=== PATIENT | female | born 1985 | race American Indian/Alaskan Native ===

== ENCOUNTER 2016-11-25 20:31 | Emergency (ER) | payer SELFPAY ==
[2016-11-25 21:14] LABS: Basophils % (Auto) 0.5 % (0.0-1.8); Eosinophils % (Auto) 1.7 % (0.0-4.3); Hematocrit 37.2 % (30.3-42.9); Hemoglobin 12.2 gm/dl (10.1-14.3); Mean Corpuscular HGB Conc 33 % (30-34); Mean Corpuscular Hemoglobin 31 pg (28-32); Mean Corpuscular Volume 96 fl (79-97); Platelet Count 179 K/mm3 (140-440); Red Blood Count 3.89 M/mm3 (3.65-5.03); Red Cell Distribution Width 12.1 % (13.2-15.2); White Blood Count 7.6 K/mm3 (4.5-11.0)
[2016-11-25 21:35] LABS: Blood Urea Nitrogen 7 mg/dL (7-17); Calcium 8.7 mg/dL (8.4-10.2); Carbon Dioxide 20 mmol/L (22-30); Glucose 78 mg/dL (65-100)
[2016-11-25 21:36] LABS: Anion Gap 20 mmol/L; Chloride 98.9 mmol/L (98-107); Sodium 135 mmol/L (137-145)
--- NOTE | 2016-11-25 21:54 | Ultrasound Report ---
FINAL REPORT PROCEDURE: Obstetrical ultrasound. TECHNIQUE: Real-time transabdominal sonography of the uterus, placenta, amniotic fluid, adnexa, and fetus was performed with image documentation. Measurements were obtained to determine age/size. M-mode Doppler was used to document heartbeat. CPT 94431 HISTORY: Vaginal bleeding with . COMPARISON: No prior studies are available for comparison. FINDINGS: The uterus measures 13.7 centimeters x 9.2 centimeters x 11.3 centimeters. There is a single intrauterine fetus in aquatic presentation. Cardiac activity is documented at 161 beats per minute. The crown-rump length measurement is 6.5 centimeters. This indicates a menstrual age of 12 weeks 6 days. The estimated date of confinement is 06/03/2017. The placenta is anterior in location. There are no signs of placental hemorrhage. Both ovaries appear normal in size. IMPRESSION: Single viable intrauterine with a menstrual age of 12 weeks 6 days.
[2016-11-25 22:01] LABS: Bilirubin,Urine NEG (Negative); Blood,Urine NEG (Negative); Ketones,Urine 20 mg/dL (Negative); Leukocyte Esterase,Urine MOD (Negative); Mucus,Urine 1+ /HPF; Nitrite,Urine NEG (Negative); Protein,Urine <15 mg/dL mg/dL (Negative); Urobilinogen,Urine < 2.0 mg/dL (<2.0)
[2016-11-25] MEDS ORDERED: TYLENOL PO ONE (23:45)
[2016-11-25] MEDS ORDERED: ZOFRAN ODT PO ONE (23:45)
--- NOTE | 2016-11-25 23:46 | Emergency Department Report ---
ED General Adult HPI - General Chief complaint: Dyspnea/Respdistress Stated complaint: CP/SOB/PREG/VAG BLEEDING Time Seen by Provider: 11/25/16 23:34 Source: patient, RN notes reviewed Mode of arrival: Ambulatory Limitations: No Limitations - History of Present Illness Initial comments: This is a 31-year-old female. She is previously unknown to me. She is 4, para 3. She does not have any primary care doctor. She does not have a private PRODUCT SUPPORT REPRESENTATIVE doctor. She is known to be today. Last menstrual period was September 04. No aspirin within the past 7 days. No cocaine use. No leg pain. No leg swelling. No history of DVT or pulmonary embolus. Does not take control tablets. The patient presents to ER with multiple complaints. First complaint is left- sided chest wall pain. It is aching. It has been present since 5:00 in the morning. The pain is constant. It does not radiate to the back, arms or neck. There is no diaphoresis. Patient endorses vomiting which has been going on since her . Patient also complains of shortness of breath. The patient says complaint is resolved vaginal bleeding. It was yesterday. It has since resolved. Patient denies irritative and obstructive urinary symptoms. She did complain of flank pain to the nurse, but to me did not complain of it. The chest pain has no exacerbating or relieving factors. Vaginal bleeding is not having exacerbating or relieving factors. It has resolved on its own. -: Gradual Location: chest, genitals Consistency: intermittent Improves with: other (History of present illness) Worsens with: other (History of present illness) Associated Symptoms: chest pain, shortness of breath - Related Data Previous Rx's Medication Instructions Recorded Last Taken Type Doxylamine/Pyridoxine HCl 1 each PO QHS PRN #30 tablet. 11/26/16 Unknown Rx [Shahid Del Toro 10-10 mg Tablet] Vit W-Ca,Fe,FA(<1 mg) 1 each PO QDAY #30 tablet 11/26/16 Unknown Rx [ Vitamins] Allergies Allergy/AdvReac Type Severity Reaction Status Date / Time No Known Allergies Allergy Unverified 11/25/16 20:52 ED Review of Systems ROS: Stated complaint: CP/SOB/PREG/VAG BLEEDING Other details as noted in HPI Constitutional: denies: fever Eyes: denies: vision change ENT: denies: epistaxis Respiratory: denies: cough Cardiovascular: chest pain Gastrointestinal: as per HPI Genitourinary: abnormal menses Musculoskeletal: as per HPI Skin: as per HPI Neurological: as per HPI Psychiatric: as per HPI ED Past Medical Hx - Past Medical History Previous Medical History?: No - Surgical History Additional Surgical History: 2010 fx pelvic bone, - Social History Smoking Status: Never Smoker Substance Use Type: None - Medications Home Medications: Home Medications Medication Instructions Recorded Confirmed Last Taken Type Doxylamine/Pyridoxine HCl 1 each PO QHS PRN #30 tablet. 11/26/16 Unknown Rx [Diclegis Dr 10-10 mg Tablet] Vit W-Ca,Fe,FA(<1 mg) 1 each PO QDAY #30 tablet 11/26/16 Unknown Rx [ Vitamins] ED Physical Exam - General Limitations: No Limitations General appearance: alert, in no apparent distress - Head Head exam: Present: atraumatic, normocephalic - Eye Eye exam: Present: normal appearance, PERRL, EOMI, other (visual acuity intact to finger counting, color perception, reading at a close distance). Absent: nystagmus - ENT ENT exam: Present: normal exam, normal orophraynx, mucous membranes moist, TM's normal bilaterally, normal external ear exam - Neck Neck exam: Present: normal inspection, full ROM. Absent: tenderness, meningismus - Respiratory Respiratory exam: Present: normal lung sounds bilaterally, other (bilateral breast exam is unremarkable. There is no chest wall tenderness. During the breast examination, I am escorted by ER chemical radiation technician Mariela Wilde). Absent: respiratory distress, wheezes, rales, rhonchi, stridor, chest wall tenderness - Cardiovascular Cardiovascular Exam: Present: regular rate, normal rhythm, normal heart sounds. Absent: bradycardia, tachycardia, irregular rhythm, systolic murmur, diastolic murmur, rubs, gallop - GI/Abdominal GI/Abdominal exam: Present: soft, normal bowel sounds. Absent: distended, tenderness, guarding, rebound, rigid, pulsatile mass - External exam: Present: normal external exam Speculum exam: Present: normal speculum exam. Absent: vaginal bleeding Bi-manual exam: Present: normal bi-manual exam, other (escorted by Mariela Wilde). Absent: cervical motion tendernes, adnexal tenderness, adnexal mass, uterine tenderness - Extremities Exam Extremities exam: Present: normal inspection, full ROM, normal capillary refill. Absent: tenderness, pedal edema, joint swelling, calf tenderness - Back Exam Back exam: Present: normal inspection, full ROM. Absent: tenderness, CVA tenderness (R), CVA tenderness (L), muscle spasm, paraspinal tenderness, vertebral tenderness - Neurological Exam Neurological exam: Present: alert, oriented X3, normal gait (there is no pass pointing. Negative pronator drift. Normal [id number]. Negative Romberg examination. Normal tandem gait. Normal gait.), other (Extraocular movements intact. Tongue midline. No facial droop. Facial sensation intact to light touch in the V1, V2, V3 distribution bilaterally. 5 and 5 strength in 4 extremities.. Sensation is intact to light touch in 4 extremities.). Absent: motor sensory deficit - Psychiatric Psychiatric exam: Present: normal affect, normal mood - Skin Skin exam: Present: warm, dry, intact, normal color. Absent: rash ED Course Vital Signs 11/25/16 11/26/16 11/26/16 20:40 00:05 00:30 Temperature 98 F Pulse Rate 78 81 86 Respiratory 18 14 16 Rate Blood Pressure 128/80 113/75 O2 Sat by Pulse 100 100 Oximetry - Reevaluation(s) Reevaluation #1: 11/26/16 01:12 Differential diagnosis: Costochondritis, GERD, reflux, pericarditis, myocarditis , pneumonia, acute coronary syndrome, pulmonary embolus Assessment and plan: 31-year-old female with chest pain for 20 hours. Troponins negative 2. Low risk by well's criteria, low risk by heart score, low risk by NAT score, d-dimer negative. EKG is suggested to be consistent with pericarditis as per the computer interpretation, I feel like the EKG is more consistent with benign early repolarization. The patient's history does not seem to be consistent with classic pericarditis. X-ray of the chest is negative. The risks, benefits, alternatives of x-ray were discussed with the patient verbalizes understanding. She did endorse a history of vaginal bleeding, she is found to be Rh+, and an ultrasound demonstrates an intrauterine with a gestational age of 12 weeks and 6 days. The patient is instructed to follow up with outpatient obstetrics to initiate care. She is tolerating liquid feeds at this time. She will be discharged at this time. Urinalysis is not consistent with UTI. Given lack of fever, lack of tachycardia, I think myocarditis, pericarditis very unlikely. 11/26/16 01:17 ED Medical Decision Making - Lab Data Result diagrams: 11/25/16 20:59 11/25/16 20:59 Vital Signs 11/25/16 11/26/16 11/26/16 20:40 00:05 00:30 Temperature 98 F Pulse Rate 78 81 86 Respiratory 18 14 16 Rate Blood Pressure 128/80 113/75 O2 Sat by Pulse 100 100 Oximetry Labs 11/25/16 11/25/16 11/25/16 20:59 20:59 20:59 WBC RBC Hgb Hct MCV MCH MCHC RDW Plt Count Lymph % (Auto) Grayson % (Auto) Eos % (Auto) Baso % (Auto) Lymph # Grayson # Eos # Baso # Seg Neutrophils % Seg Neutrophils # PT INR D-Dimer Sodium 135 L Potassium 4.0 Chloride 98.9 Carbon Dioxide 20 L Anion Gap 20 BUN 7 Creatinine 0.5 L Estimated GFR > 60 BUN/Creatinine Ratio 14.00 Glucose 78 Calcium 8.7 Troponin T < 0.010 HCG, Quant 90073 H Urine Color Urine Turbidity Urine pH Ur Specific Guin Urine Protein Urine Glucose (UA) Urine Ketones Urine Blood Urine Nitrite Urine Bilirubin Urine Urobilinogen Ur Leukocyte Esterase Urine WBC (Auto) Urine RBC (Auto) U Epithel Cells (Auto) Urine Mucus Blood Type A POSITIVE 11/25/16 11/25/16 11/25/16 20:59 21:19 23:56 WBC 7.6 RBC 3.89 Hgb 12.2 Hct 37.2 MCV 96 MCH 31 MCHC 33 RDW 12.1 L Plt Count 179 Lymph % (Auto) 19.2 Grayson % (Auto) 6.0 Eos % (Auto) 1.7 Baso % (Auto) 0.5 Lymph # 1.5 Grayson # 0.5 Eos # 0.1 Baso # 0.0 Seg Neutrophils % 72.6 H Seg Neutrophils # 5.6 PT 12.8 INR 0.97 D-Dimer 226.88 Sodium Potassium Chloride Carbon Dioxide Anion Gap BUN Creatinine Estimated GFR BUN/Creatinine Ratio Glucose Calcium Troponin T HCG, Quant Urine Color Yellow Urine Turbidity Clear Urine pH 6.0 Ur Specific Guin 1.025 Urine Protein <15 mg/dl Urine Glucose (UA) Neg Urine Ketones 20 Urine Blood Neg Urine Nitrite Neg Urine Bilirubin Neg Urine Urobilinogen < 2.0 Ur Leukocyte Esterase Mod Urine WBC (Auto) 2.0 Urine RBC (Auto) 4.0 U Epithel Cells (Auto) 3.0 Urine Mucus 1+ Blood Type 11/25/16 23:56 WBC RBC Hgb Hct MCV MCH MCHC RDW Plt Count Lymph % (Auto) Grayson % (Auto) Eos % (Auto) Baso % (Auto) Lymph # Grayson # Eos # Baso # Seg Neutrophils % Seg Neutrophils # PT INR D-Dimer Sodium Potassium Chloride Carbon Dioxide Anion Gap BUN Creatinine Estimated GFR BUN/Creatinine Ratio Glucose Calcium Troponin T < 0.010 HCG, Quant Urine Color Urine Turbidity Urine pH Ur Specific Guin Urine Protein Urine Glucose (UA) Urine Ketones Urine Blood Urine Nitrite Urine Bilirubin Urine Urobilinogen Ur Leukocyte Esterase Urine WBC (Auto) Urine RBC (Auto) U Epithel Cells (Auto) Urine Mucus Blood Type - EKG Data -: EKG Interpreted by Me EKG shows normal: sinus rhythm Rate: normal - EKG Data 11/26/16 01:14 EKG #1: Sinus, 73 bpm, normal intervals, normal axis, not consistent with STEMI, possible early pericarditis versus repolarization EKG #2: Normal sinus, 81 bpm, normal intervals, normal axis, not morphologically consistent with STEMI, early repolarization versus pericarditis of possibility - Radiology Data Radiology results: report reviewed, image reviewed interpreted by me: X-ray of the chest is negative for acute disease. Ultrasound demonstrates a viable intrauterine with a menstrual age of 12 weeks and 6 days. Critical care attestation.: If time is entered above; I have spent that time in minutes in the direct care of this critically ill patient, excluding procedure time. ED Disposition Clinical Impression: , Chest pain Disposition: DISCHARGED TO HOME OR SELFCARE Is pt being admited?: No Does the pt Need Aspirin: No Condition: Stable Instructions: Chest Pain (ED), (ED) Additional Instructions: Ultrasound demonstrates that the is almost 13 weeks. Take the vitamins as directed, nausea medications as needed. Follow-up as soon as possible with an outpatient machine candle molder to initiate care. Follow up with any of the listed cardiology specialists within the next week for your chest pain. Take acetaminophen as needed for chest pain. Return to the ER right away with new pain, worsened pain, migration of pain, fevers, chills, intractable nausea or vomiting, inability to tolerate liquid feeds, confusion. Do not initiate sex unless cleared by an PRODUCT SUPPORT REPRESENTATIVE doctor. Abstain from consumption of alcohol, tobacco, marijuana, and avoid contact with individuals that smoke tobacco or marijuana. Prescriptions: Doxylamine/Pyridoxine HCl [Shahid Del Toro 10-10 mg Tablet] 1 each PO QHS PRN #30 tablet.dr [place] Reason: Nausea Vit W-Ca,Fe,FA(<1 mg) [ Vitamins] 1 each PO QDAY #30 tablet Referrals: PRIMARY CARE, [Primary Care Provider] - 3-5 Days [facility] [Provider Group] - 3-5 Days [facility] [Provider Group] - 3-5 Days [facility] [Provider Group] - 3-5 Days [facility] [Provider [facility]] - 3-5 Days [facility] [Provider Group] - 3-5 Days
[2016-11-26 00:19] LABS: INR 0.97 (0.87-1.13)
[2016-11-26 00:40] VITALS: BP 113/75
--- NOTE | 2016-11-26 10:14 | XRay Report ---
ROUTINE CHEST, TWO VIEWS: HISTORY: chest pain. The trachea, heart, mediastinal contour, lung zarate and bony thorax are unremarkable. IMPRESSION: Unremarkable chest x-ray.
== END 2016-11-26 01:30 | disposition home or self-care (01) ==
LOC: ED 20:31
DX: O26.891 Other specified pregnancy related conditions, first trimester (principal); R07.9 Chest pain, unspecified; Z3A.13 13 weeks gestation of pregnancy
CPT/HCPCS: 36415; 71020; 76801; 80048; 81001; 84484; 84702; 85025; 85379; 85610; 86900; 86901; 87591; 93005; 93010; Q0162

== ENCOUNTER 2017-11-02 11:47 | Emergency (ER) | payer SELFPAY ==
[2017-11-02 12:24] VITALS: BP 131/84
--- NOTE | 2017-11-02 15:15 | Emergency Department Report ---
- General Chief complaint: Skin/Abscess/Foreign Body Stated complaint: INSECT BITE Time Seen by Provider: 11/02/17 14:47 Source: patient Mode of arrival: Ambulatory Limitations: No Limitations - History of Present Illness Initial comments: This is a 32-year-old female nontoxic, well nourished in appearance, no acute signs of distress presents to the ED with c/o of left sided redness with swelling x2 days. Patient stated she felt like something bite her and now swelling is increasing. Patient denies any pus, drainage, fever, chills, headache, nausea, vomiting, chest pain, shortness of breathe, back pain. Patient denies any allergies or PMH. MD complaint: insect bite/sting -: days(s) (2) Location: face Severity: mild Severity scale (0 -10): 8 Quality: aching Consistency: constant Improves with: none Worsens with: none Context: none Associated symptoms: denies other symptoms Treatments Prior to Arrival: none - Related Data Previous Rx's Medication Instructions Recorded Last Taken Type Doxylamine Succinate/Vit B6 1 each PO QHS PRN #30 tablet. 11/26/16 Unknown Rx [Shahid Del Toro 10-10 mg Tablet] Vit Calc,Iron,Folic 1 each PO QDAY #30 tablet 11/26/16 Unknown Rx [ Vitamins] Acetaminophen/Codeine [Tylenol 1 tab PO Q6H PRN #15 tab 11/02/17 Unknown Rx /Codeine # 3 tab] Clindamycin [Clindamycin CAP] 300 mg PO Q8H 7 Days cap 11/02/17 Unknown Rx Allergies Allergy/AdvReac Type Severity Reaction Status Date / Time No Known Allergies Allergy Unverified 11/25/16 20:52 Abscess Boil HPI - HPI Chief Complaint: Skin/Abscess/Foreign Body Stated Complaint: INSECT BITE Time Seen by Provider: 11/02/17 14:47 Home Medications: Previous Rx's Medication Instructions Recorded Last Taken Type Doxylamine Succinate/Vit B6 1 each PO QHS PRN #30 tablet. 11/26/16 Unknown Rx [Shahid Del Toro 10-10 mg Tablet] Vit Calc,Iron,Folic 1 each PO QDAY #30 tablet 11/26/16 Unknown Rx [ Vitamins] Acetaminophen/Codeine [Tylenol 1 tab PO Q6H PRN #15 tab 11/02/17 Unknown Rx /Codeine # 3 tab] Clindamycin [Clindamycin CAP] 300 mg PO Q8H 7 Days cap 11/02/17 Unknown Rx Allergies/Adverse Reactions: Allergies Allergy/AdvReac Type Severity Reaction Status Date / Time No Known Allergies Allergy Unverified 11/25/16 20:52 ED Review of Systems ROS: Stated complaint: INSECT BITE Other details as noted in HPI Constitutional: denies: chills, fever Eyes: denies: eye pain, eye discharge, vision change ENT: denies: ear pain, throat pain Respiratory: denies: cough, shortness of breath, wheezing Cardiovascular: denies: chest pain, palpitations Endocrine: no symptoms reported Gastrointestinal: denies: abdominal pain, nausea, diarrhea Genitourinary: denies: urgency, dysuria, discharge Musculoskeletal: denies: back pain, joint swelling, arthralgia Skin: denies: rash, lesions Neurological: denies: headache, weakness, paresthesias Psychiatric: denies: anxiety, depression Hematological/Lymphatic: denies: easy bleeding, easy bruising ED Past Medical Hx - Past Medical History Previous Medical History?: No - Surgical History Additional Surgical History: 2010 fx pelvic bone, - Social History Smoking Status: Never Smoker Substance Use Type: None - Medications Home Medications: Home Medications Medication Instructions Recorded Confirmed Last Taken Type Doxylamine Succinate/Vit B6 1 each PO QHS PRN #30 tablet. 11/26/16 Unknown Rx [Shahid Del Toro 10-10 mg Tablet] Vit Calc,Iron,Folic 1 each PO QDAY #30 tablet 11/26/16 Unknown Rx [ Vitamins] Acetaminophen/Codeine [Tylenol 1 tab PO Q6H PRN #15 tab 11/02/17 Unknown Rx /Codeine # 3 tab] Clindamycin [Clindamycin CAP] 300 mg PO Q8H 7 Days cap 11/02/17 Unknown Rx ED Physical Exam - General Limitations: No Limitations General appearance: alert, in no apparent distress - Head Head exam: Present: atraumatic, normocephalic - Expanded Head Exam Expanded 1 - 1 cm nodular swelling with redness with small bite carlos. No induartion or flutance noted. Tender to touch. - Eye Eye exam: Present: normal appearance - ENT ENT exam: Present: normal exam, normal orophraynx, mucous membranes moist, TM's normal bilaterally, normal external ear exam - Neck Neck exam: Present: normal inspection, full ROM. Absent: tenderness, meningismus, lymphadenopathy - Respiratory Respiratory exam: Present: normal lung sounds bilaterally. Absent: respiratory distress, wheezes, rales, rhonchi, stridor, chest wall tenderness, accessory muscle use, decreased breath sounds, prolonged expiratory - Cardiovascular Cardiovascular Exam: Present: regular rate, normal rhythm, normal heart sounds. Absent: bradycardia, tachycardia, irregular rhythm, systolic murmur, diastolic murmur, rubs, gallop - GI/Abdominal GI/Abdominal exam: Present: soft, normal bowel sounds - Rectal Rectal exam: Present: deferred - Extremities Exam Extremities exam: Present: normal inspection, full ROM, normal capillary refill - Back Exam Back exam: Present: normal inspection, full ROM - Neurological Exam Neurological exam: Present: alert, oriented X3, normal gait - Psychiatric Psychiatric exam: Present: normal affect, normal mood - Skin Skin exam: Present: warm, dry, intact, normal color. Absent: rash ED Course Vital Signs 11/02/17 12:21 Temperature 99.1 F Pulse Rate 90 Respiratory 16 Rate Blood Pressure 131/84 O2 Sat by Pulse 100 Oximetry - Reevaluation(s) Reevaluation #1: 11/02/17 15:15 Patient is speaking in full sentences with no signs of distress noted. ED Medical Decision Making - Medical Decision Making This is a 32-year-old female that presents with cellulitis. Patient is stable and was examined by me. The area is about 1 cm nodular swelling with redness with small bite carlos. No induartion or flutance noted. Tender to touch. I will treat patient with clinda at discharge. Patient was educated and instructed to observe symptoms of increased swelling. She indicates abscess and needs to be incised. The area has been outlined with a permanent marker. Patient was instructed to Follow-up with a primary care doctor in 3-5 days or if symptoms worsen and continue return to emergency room as soon as possible. At time of discharge, the patient does not seem toxic or ill in appearance. No acute signs of distress noted. Patient agrees to discharge treatment plan of care. No further questions noted by the patient. Critical care attestation.: If time is entered above; I have spent that time in minutes in the direct care of this critically ill patient, excluding procedure time. ED Disposition Clinical Impression: Cellulitis Qualifiers: Site of cellulitis: face Qualified Code(s): L03.211 - Cellulitis of face Disposition: - TO HOME OR SELFCARE Is pt being admited?: No Does the pt Need Aspirin: No Condition: Stable Instructions: Clindamycin (By mouth), Acetaminophen/Codeine (By mouth) Additional Instructions: Follow-up with a primary care doctor in 3-5 days or if symptoms worsen and continue return to emergency room as soon as possible. Prescriptions: Acetaminophen/Codeine [Tylenol /Codeine # 3 tab] 1 tab PO Q6H PRN #15 tab PRN Reason: Pain Clindamycin [Clindamycin CAP] 300 mg PO Q8H 7 Days cap Referrals: PRIMARY MD QUAN [Primary Care Provider] - 3-5 Days BAKARI ROMANO MD [Staff Physician] - 3-5 Days [facility] [Outside] - 3-5 Days [facility] [Outside] - 3-5 Days Forms: Work/School Release Form(ED)
== END 2017-11-02 15:36 | disposition home or self-care (01) ==
LOC: ED 11:47
DX: L03.211 Cellulitis of face (principal)
CPT/HCPCS: 99282

== ENCOUNTER 2019-04-19 11:30 | Emergency (ER) | payer SELFPAY | END 2019-04-19 12:08 | disposition left against medical advice (07) | LOC: ED 11:30 | DX: R05 Cough (principal); Z53.21 Procedure and treatment not carried out due to patient leaving prior to being seen by health care provider ==